=== PATIENT | male | born 1950 | race Caucasian/White ===

== ENCOUNTER 2018-04-29 10:08 | Inpatient (IN) | payer BC, MEDICARE ==
[~2018-04-29] VITALS: Ht 172.7 cm; Wt 118.2 kg
[~2018-04-29 10:08] MED LIST: AVALIDE 150-121 EACH; CO Q 10 PO; COSAMIN ASU CA1 EACH PO; CRESTOR10 MG PO; FIBER PO; FISH OIL; QSYMIA PO; TESTOSTERONE IM; VITAMIN D; VITAMIN D-3 PO; vitamin b12 PO
[2018-04-29] MEDS ORDERED: HYDROCODONE/APAP 10MG-325MG TAB ONE (10:36)
[2018-04-29] MEDS ORDERED: HYDROCODONE/APAP 10MG-325MG TAB PO ONE (10:45)
--- NOTE | 2018-04-29 11:50 | Diagnostic Imaging Report ---
Exam: Head CT without contrast History: Trauma, fall, on blood thinners Comparison studies: None Technique: Axial images were obtained from the skull base to the vertex. Coronal and sagittal images reconstructed from the axial data. Dose modulation, iterative reconstruction, and/or weight based adjustment of the mA/kV was utilized to reduce the radiation dose to as low as reasonably achievable. Radiation dose: Total DLP: 832 mGy*cm. Estimated effective dose: DLP x 0.015 Intravenous contrast: None Findings: Scalp: No abnormalities. Bones: No fractures, blastic or lytic lesions. Brain sulci: Appropriate for age. Ventricles: Normal in size and configuration. No hydrocephalus. Extra-axial spaces: No masses, no fluid collection. Parenchyma: No abnormal densities. No masses, hemorrhage, acute or chronic vascular insults. Sellar/suprasellar region: No abnormalities. Craniocervical junction: Patent foramen magnum. No Chiari one malformation. Incidental findings: Atherosclerotic calcifications in the carotid siphons and intradural vertebral arteries. IMPRESSION: No acute abnormalities. Specifically, no acute intracranial hemorrhage. Signed by: Dr. Antonio Heck M.D. on 04/29/2018 11:46 AM
--- NOTE | 2018-04-29 11:52 | Diagnostic Imaging Report ---
RIGHT FEMUR - 4 Images RIGHT KNEE - 3 Images RIGHT TIBIA AND FIBULA - 4 Images HISTORY: Pain, status post fall COMPARISON: None available. FINDINGS: Bones: A mildly comminuted, predominantly transverse, intra-articular fracture of the inferior half of the patella with 4.1 cm distraction of the main fracture fragments. No aggressive osseous lesion. Joints: Mild degenerative changes of the right hip. Soft tissues: Prominent soft tissue swelling about the patellar fracture. IMPRESSION: Acute, mildly comminuted, distracted fracture of the patella. Signed by: Dr. Clayton Jones D.O., M.M.M. on 04/29/2018 11:48 AM
[2018-04-29] MEDS ORDERED: SODIUM CHLORIDE 0.9% 1000ML 1,000 ML IV STA (12:56)
[2018-04-29] MEDS ORDERED: SODIUM CHLORIDE 0.9% 1000ML 1,000 ML IV SCH (13:17)
[2018-04-29] MEDS ORDERED: ONDANSETRON HCL INJ 2MG/ML 2ML 2 MG/ML VIAL IV PRN (13:30)
[2018-04-29] MEDS ORDERED: DEXTROSE 50% SYRINGE 50 ML IV PRN (13:30)
[2018-04-29] MEDS ORDERED: MORPHINE SULFATE 2 MG/ML SYR 1ML IV PRN (13:30)
[2018-04-29 13:35] LABS: BASOPHILS # (AUTO) 0.1 (0.0-0.1); BASOPHILS % 0.3 % (0.0-1.0); HEMATOCRIT 48.2 % (38.2-49.6); HEMOGLOBIN 16.5 g/dL (14.0-18.0); LYMPHOCYTES # (AUTO) 1.8 (1.0-3.2); LYMPHOCYTES % 8.7 % (18.0-39.1); MEAN CORPUSCULAR HEMOGLOBIN 29.1 pg (28-32); MEAN CORPUSCULAR HGB CONC 34.2 g/dL (31-35); MONOCYTES # (AUTO) 0.9 (0.2-0.8); MONOCYTES % 4.4 % (4.4-11.3); NEUTROPHILS # (AUTO) 17.9 (2.1-6.9); NEUTROPHILS % 85.9 % (38.7-80.0); PLATELET COUNT 256 x10e3/uL (140-360); RED BLOOD COUNT 5.67 x10e6/uL (4.3-5.7); RED CELL DISTRIBUTION WIDTH 13.2 % (11.7-14.4)
[2018-04-29 13:38] LABS: INR 0.92; PROTHROMBIN TIME 12.8 seconds (11.9-14.5)
[2018-04-29 13:39] LABS: PARTIAL THROMBOPLASTIN TIME 30.9 seconds (23.8-35.5)
--- NOTE | 2018-04-29 13:53 | Diagnostic Imaging Report ---
EXAM: CHEST SINGLE (PORTABLE) DATE: 04/29/2018 12:56 PM INDICATION: Preoperative knee surgery COMPARISON: None FINDINGS: Lines and tubes: None Heart size normal. No focal pulmonary opacity, pleural effusion or pneumothorax. Upper abdomen unremarkable. No acute bony abnormality. IMPRESSION: No evidence for acute disease. Signed by: Dr. Jet Scott M.D. on 04/29/2018 1:49 PM
--- NOTE | 2018-04-29 15:20 | NUR ---
RCD PT FROM ER BY STRETCHER PT IS ALERT AND ORIENTED VITALS CHECKED PT RESTING ON BED NO SIGNS OF ANY DISTRESS NOTED HE FELL DOWN WHILE IN THE BATH ROOM FRACTURE ON THE RT PATELLA ADMISSION ASSESSMENT AND HISTORY DONE FAMILY AT BED SIDE BED LOW AND LOCKED CALL LIGHT IN REACH
--- OUTSIDE RECORDS SUMMARY | 2018-04-29 15:20 | XMS REPORT ---
Author Author [facility] Address Unknown Phone Unavailable Care Team Providers Care Biomass Production Manager Name Role Phone Ignacio BELTRÁN Unavailable Unavailable Problems This patient has no known problems. Allergies, Adverse Reactions, Alerts This patient has no known allergies or adverse reactions. Medications This patient has no known medications. Results Test Description Test Time Test Comments Text Results Atomic Results Result Comments CHEST SINGLE (PORTABLE) 2018-04-29 13:48:00 [place] [address] Patient Name: MONTRELL VELAZCO MR #: [id number] : 1950 Age/Sex: 68/M Req #: [id number] Adm Physician: Ordered by: DAISY BELTRÁN MD Report #: [id number] Location: ER Room/Bed: Procedure: [id number] DX/CHEST SINGLE (PORTABLE) Exam Date: 04/29/18 Exam Time: 1300 REPORT STATUS: Signed EXAM: CHEST SINGLE (PORTABLE) DATE: 04/29/2018 12 :56 PM INDICATION: Preoperative knee surgery COMPARISON: None FINDINGS: Lines and tubes: None Heart size normal. No focal pulmonary opacity, pleural effusion or pneumothorax. Upper abdomen unremarkable. No acute bony abnormality. IMPRESSION: No evidence for acute disease. Signed by: Dr. Latasha Sousa M.D. on 04/29/2018 1:49 PM Dictated By: LATASHA SOUSA MD 1349 Transcribed By: CLAUDE on 04/29/181348 COPY TO: DAISY BELTRÁN MD FEMUR TWO VIEW MINIMUM RIGHT 2018-04-29 11:44:00 [place] [address] Patient Name: MONTRELL VELAZCO MR #: [id number] : 1950 Age/Sex: 68/M Req #: [id number] Adm Physician: Ordered by: KRISHAN SANTO NP Report #: [id number] Location: ER Room/Bed: Procedure: [id number] DX/FEMUR TWO VIEW MINIMUM RIGHT Exam Date: Exam Time: REPORT STATUS: Signed RIGHT FEMUR - 4 Images RIGHT KNEE - 3 Images RIGHT TIBIA AND FIBULA - 4 Images HISTORY: Pain, status post fall COMPARISON: None available. FINDINGS: Bones: A mildly comminuted, predominantly transverse, intra-articular fracture of the inferior half of the patella with 4.1 cm distraction of the main fracture fragments. No aggressive osseous lesion. Joints: Mild degenerative changes of the right hip. Soft tissues: Prominent soft tissue swelling about the patellar fracture. IMPRESSION: Acute, mildly comminuted, distracted fracture of the patella. Signed by: Dr. Alexa Jones D.O., M.M.M. on 04/29/2018 11:48 AM Dictated By: ALEXA JONES DO 1148 Transcribed By: CLAUDE on 04/29/18 1148 COPY TO: KRISHAN SANTO NP KNEE RIGHT THREE VIEWS 2018-04-29 11:44:00 [place] [address] Patient Name: MONTRELL VELAZCO MR #: [id number] : 1950 Age/Sex: 68/M Req #: [id number] Adm Physician: Ordered by: KRISHAN SANTO DIRECTOR INTELLIGENCE ANALYSIS PROGRAMS Report #: [id number] Location: ER Room/Bed: Procedure: [id number] DX/KNEE RIGHT THREE VIEWS Exam Date: 04/29/18 Exam Time: 1115 REPORT STATUS: Signed RIGHT FEMUR - 4 Images RIGHT KNEE - 3 Images RIGHT TIBIA AND FIBULA - 4 Images HISTORY: Pain, status post fall COMPARISON: None available. FINDINGS: Bones: A mildly comminuted, predominantly transverse, intra-articular fracture of the inferior half of the patella with 4.1 cm distraction of the main fracture fragments. No aggressive osseous lesion. Joints: Mild degenerative changes of the right hip. Soft tissues: Prominent soft tissue swelling about the patellar fracture. IMPRESSION: Acute, mildly comminuted, distracted fracture of the patella. Signed by: Dr. Alexa Jones D.O., M.M.M. on 04/29/2018 11:48 AM Dictated By: ALEXA JONES DO 1148 Transcribed By: CLAUDE on 04/29/18 1148 COPY TO: KRISHAN SANTO DIRECTOR INTELLIGENCE ANALYSIS PROGRAMS LOWER LEG RIGHT 2018-04-29 11:44:00 [place] [address] Patient Name: MONTRELL VELAZCO MR #: [id number] : 1950 Age/Sex: 68/M Req #: [id number] Adm Physician: Ordered by: KRISHAN SANTO DIRECTOR INTELLIGENCE ANALYSIS PROGRAMS Report #: [id number] Location: ER Room/Bed: Procedure: [id number] DX/LOWER LEG RIGHT Exam Date: 04/29/18 Exam Time: 1100 REPORT STATUS: Signed RIGHT FEMUR - 4 Images RIGHT KNEE - 3 Images RIGHT TIBIA AND FIBULA - 4 Images HISTORY: Pain, status post fall COMPARISON: None available. FINDINGS: Bones: A mildly comminuted, predominantly transverse, intra-articular fracture of the inferior half of the patella with 4.1 cm distraction of the main fracture fragments. No aggressive osseous lesion. Joints: Mild degenerative changes of the right hip. Soft tissues: Prominent soft tissue swelling about the patellar fracture. IMPRESSION: Acute, mildly comminuted, distracted fracture of the patella. Signed by: Dr. Alexa Jones D.O., M.M.M. on 04/29/2018 11:48 AM Dictated By: ALEXA JONES DO 1148 Transcribed By: CLAUDE on 04/29/18 1148 COPY TO: KRISHAN SANTO NP CT BRAIN WO 2018-04-29 11:41:00 [place] [address] Patient Name: MONTRELL VELAZCO MR #: [id number] : 1950 Age/Sex: 68/M Req #: [id number] Adm Physician: Ordered by: KRISHAN SANTO NP Report #: [id number] Location: ER Room/Bed: Procedure: [id number] CT/CT BRAIN WO Exam Date: 04/29/18 Exam Time: 1115 REPORT STATUS: Signed Exam: Head CT without contrast History: Trauma, fall, on b lood thinners Comparison studies: None Technique: Axial images were obtained from the skull base to the vertex. Coronal and sagittal images reconstructed from the axial data. Dose modulation, iterative reconstruction, and/or weight based adjustment of the mA/kV was utilized to reduce the radiation dose to as low as reasonably achievable. Radiation dose: Total DLP: 832 mGy*cm. Estimated effective dose: DLP x 0.015 Intravenous contrast: None Findings: Scalp: No abnormalities. Bones: No fractures, blastic or lytic lesions. Brain sulci: Appropriate for age. Ventricles: Normal in size and configuration. No hydrocephalus. Extra-axial spaces: No masses, no fluid collection. Parenchyma: No abnormal densities. No masses, hemorrhage, acute or chronic vascular insults. Sellar/suprasellar region: No abnormalities. Craniocervical junction: Patent foramen magnum. No Chiari one malformation. Incidental findings: Atherosclerotic calcifications in the carotid siphons and intradural vertebral arteries. IMPRESSION: No acute abnormalities. Specifically, no acute intracranial hemorrhage. Signed by: Dr. Raheel Heck M.D. on 04/29/2018 11:46 AM Dictated By: RAHEEL HECK MD 1146 Transcribed By: CLAUDE on 04/29/18 1146 COPY TO: KRISHAN SANTO NP
[2018-04-29 16:00] VITALS: BP 156/84
[2018-04-29] MEDS: INSULIN LISPRO 100 UNIT/1 ML 3ML VIAL SQ SCH ×2 (16:30→21:00)
[2018-04-29 16:32] VITALS: BP 156/84
--- NOTE | 2018-04-29 17:58 | NUR ---
CONSULTATION - ORTHOPEDICS Patient seen & examined resting comfortably at bedside with nearby. Patient states he had a mechanical fall which resulted in him eccentrically loading his right knee which resulted in a pop and fall. Denies any pain in any other extremity. Denies any numbness, paresthesias and loss of distal motor function. PMdHx: CAD, HTN, HLD, Borderline DM Allergies: NKDA SurgHx: Left Knee Surgery, Left Wrist Surgery, Cardiac Stents FamHx: Non-contributory SocHx: Denies Tob, Denies Drugs, 2 drinks per day EtOH Meds: See reconciliation VS: T 98.1, HR 75, RR 16, BP 144/94, O2 98 (RA) AAO x3, NAD, Pleasant male Right Knee Swollen, no open lesions or sores Palpable defect of patella Unable to extend knee Motor: + EHL, FHL, TA, G/S Sensation grossly intact Pulses + DP, Post tib Compartments soft Negative calf tenderness Xrays of Right Knee demonstrate comminuted left patella fracture 68 year old with Right patella fracture Plan for ORIF on Sunday Pending medical optimization and clearance Analgesics PRN Placed RLE in knee immobilizer and compressive dressing Rest, Ice & Elevation for swelling control Follow up AM Labs WBAT in knee immobilizer DVT Prophylaxis Lupe Lockett, DO [facility]
[2018-04-29 19:09] VITALS: BP 156/84
--- NOTE | 2018-04-29 19:31 | NUR ---
PATIENT RESTING ON BED BED SIDE REPORT GIVEN TO ONCOMING NURSE
--- NOTE | 2018-04-29 19:52 | NUR ---
CONSULT TO DR NUNEZ CALLED AT THIS TIME.
[2018-04-29 20:49] VITALS: BP 155/77
[2018-04-29 20:57] LABS: BASOPHILS % 0.2 % (0.0-1.0); EOSINOPHILS % 0.1 % (0.0-6.0); HEMATOCRIT 44.4 % (38.2-49.6); HEMOGLOBIN 15.3 g/dL (14.0-18.0); LYMPHOCYTES # (AUTO) 2.9 (1.0-3.2); LYMPHOCYTES % 17.4 % (18.0-39.1); MEAN CORPUSCULAR HEMOGLOBIN 28.8 pg (28-32); MEAN CORPUSCULAR HGB CONC 34.5 g/dL (31-35); MEAN CORPUSCULAR VOLUME 83.5 fL (81-99); MONOCYTES # (AUTO) 1.2 (0.2-0.8); MONOCYTES % 7.4 % (4.4-11.3); NEUTROPHILS # (AUTO) 12.3 (2.1-6.9); NEUTROPHILS % 74.4 % (38.7-80.0); PLATELET COUNT 240 x10e3/uL (140-360); RED BLOOD COUNT 5.32 x10e6/uL (4.3-5.7); RED CELL DISTRIBUTION WIDTH 13.2 % (11.7-14.4)
[2018-04-29 21:00] VITALS: BP 155/77
[2018-04-29] MEDS: HEPARIN SOD (PORCINE) 5,000 UNIT/ML VIAL SC SCH ×2 (21:00→21:57)
[2018-04-29 21:14] LABS: INR 0.94; PROTHROMBIN TIME 13.1 seconds (11.9-14.5)
[2018-04-29 21:15] LABS: PARTIAL THROMBOPLASTIN TIME 31.4 seconds (23.8-35.5)
[2018-04-29 21:25] LABS: ALANINE AMINOTRANSFERASE 23 IU/L (0-55); ALBUMIN 3.7 g/dL (3.5-5.0); ALBUMIN/GLOBULIN RATIO 1.2 (0.8-2.0); ALKALINE PHOSPHATASE 60 IU/L (40-150); ANION GAP 13.9 mmol/L (8-16); BLOOD UREA NITROGEN 15 mg/dL (7-26); BUN/CREATININE RATIO 14 (6-25); CARBON DIOXIDE 25 mmol/L (22-29); CHLORIDE 98 mmol/L (98-107); CREATINE KINASE 210 IU/L (30-200); EST GLOMERULAR FILTRATION RATE > 60 ML/MIN (60-); GLUCOSE 235 mg/dL (74-118); MAGNESIUM 1.8 MG/DL (1.3-2.1); POTASSIUM 3.9 mmol/L (3.5-5.1); SODIUM 133 mmol/L (136-145)
[2018-04-29 22:25] LABS: CLARITY,URINE CLEAR (CLEAR); COLOR,URINE YELLOW (YELLOW); LEUKOCYTE ESTERASE ,URINE NEGATIVE (NEGATIVE)
[2018-04-29 22:26] LABS: BILIRUBIN,URINE NEGATIVE (NEGATIVE); KETONES,URINE NEGATIVE (NEGATIVE); NITRITE,URINE NEGATIVE (NEGATIVE); PROTEIN,URINE DIPSTICK NEGATIVE (NEGATIVE); URINE UROBILINOGEN 0.2 mg/dL (0.2 - 1)
[2018-04-29 23:02] LABS: RBC,URINE 0-5 /HPF (0-5); WBC,URINE (MAN) 0-5 /HPF (0-5)
[2018-04-30] VITALS (8 sets, daily range): BP systolic 145–175; BP diastolic 73–97
[2018-04-30 05:50] LABS: BASOPHILS # (AUTO) 0.1 (0.0-0.1); BASOPHILS % 0.4 % (0.0-1.0); EOSINOPHILS # (AUTO) 0.1 (0.0-0.4); EOSINOPHILS % 0.6 % (0.0-6.0); HEMATOCRIT 44.4 % (38.2-49.6); HEMOGLOBIN 14.9 g/dL (14.0-18.0); LYMPHOCYTES # (AUTO) 4.2 (1.0-3.2); LYMPHOCYTES % 30.4 % (18.0-39.1); MEAN CORPUSCULAR HEMOGLOBIN 28.7 pg (28-32); MEAN CORPUSCULAR HGB CONC 33.6 g/dL (31-35); MEAN CORPUSCULAR VOLUME 85.4 fL (81-99); MONOCYTES # (AUTO) 1.4 (0.2-0.8); NEUTROPHILS # (AUTO) 8.1 (2.1-6.9); NEUTROPHILS % 58.2 % (38.7-80.0); PLATELET COUNT 232 x10e3/uL (140-360); RED CELL DISTRIBUTION WIDTH 13.4 % (11.7-14.4)
[2018-04-30 06:16] LABS: ALANINE AMINOTRANSFERASE 21 IU/L (0-55); ALBUMIN 3.5 g/dL (3.5-5.0); ALBUMIN/GLOBULIN RATIO 1.2 (0.8-2.0); ALKALINE PHOSPHATASE 53 IU/L (40-150); ANION GAP 11.3 mmol/L (8-16); BLOOD UREA NITROGEN 15 mg/dL (7-26); BUN/CREATININE RATIO 15 (6-25); CALCIUM 8.9 mg/dL (8.4-10.2); CARBON DIOXIDE 29 mmol/L (22-29); CHLORIDE 102 mmol/L (98-107); EST GLOMERULAR FILTRATION RATE > 60 ML/MIN (60-); GLUCOSE 195 mg/dL (74-118); POTASSIUM 4.3 mmol/L (3.5-5.1); SODIUM 138 mmol/L (136-145)
[2018-04-30] MEDS: HEPARIN SOD (PORCINE) 5,000 UNIT/ML VIAL SC SCH ×3 (06:30→21:27)
--- NOTE | 2018-04-30 06:30 | NUR ---
PT RESTING IN BED WITH NO S/S OF DISTRESS.RESPIRATIONS EVEN/NON LABORED.PT DENIES ANY PAIN AT THIS TIME.RLE ELEVATED.BED IN LOW/LOCKED POSITION.BED ALARM ON.CALL LIGHT WITHIN EASY REACH.
--- NOTE | 2018-04-30 07:10 | NUR ---
RCD PT AT BED PT IS ALERT AND ORIENTED ASSESSMENT DONE PT RESTING ON BED IV PATENT BRAZE ON THE RT KNEE NO C/O PAIN FAMILY AT BED SIDE BED LOW AND LOCKED CALL LIGHT IN REACH
--- NOTE | 2018-04-30 07:12 | NUR ---
REPORT GIVEN TO ONCOMING NURSE,WALKING ROUNDS MADE.PT RESTING IN BED WITH NO S/S OF DISTRESS.
[2018-04-30] MEDS: INSULIN LISPRO 100 UNIT/1 ML 3ML VIAL SQ SCH ×4 (07:30→21:26)
--- NOTE | 2018-04-30 08:20 | NUR ---
PT REFUSED INSULIN AND HE IS TAKING HIS OWN MEDS DR LUEVANO AWARE ABOUT IT
[2018-04-30] MEDS: HYDROCHLOROTHIAZIDE 25 MG TAB PO SCH (09:00)
[2018-04-30] MEDS ORDERED: SIMVASTATIN 40 MG TAB PO SCH (09:00)
[2018-04-30] MEDS: IRBESARTAN 150 MG TAB PO SCH (09:00)
--- NOTE | 2018-04-30 09:00 | NUR ---
ICE BAG APPLIED ON RT KNEE
--- NOTE | 2018-04-30 12:00 | NUR ---
CHANGED NEW ICE BAG ON THE RT KNEEICE BAG
--- NOTE | 2018-04-30 12:22 | NUR ---
CASE MANAGEMENT INITIAL ASSESSMENT Cherry Cutter to bedside to discuss plan of care with patient/family. CM/SW role and care transitions discussed. Anticipated discharge plan discussed along with duration of care. CM discussed patients right to make decisions in care. CM work hours given. Patient lives: PATIENT LIVES AT HOME IN [place], [place] WITH Admit/Transfer: ED Hospital/ER visits since last admit: >30 DAYS POA/Emergency contact: - SUZANNE VELAZCO- [phone] Current/Previous Home Health: NONE PCP/Follow-up Care: UNDEFINED. PATIENT PCP RETIRED. CURRENTLY SEARCHINF FOR A NEW PCP. PATIENT AWARE THAT A VISIT FOR FOLLOW UP IS HIGHLY ENCOURAGED WITHIN 5 DAYS OF DISCHARGE. PATIENT STATES HE WILL LOOK TODAY. Current/Previous DME: [facility] Medications (referring to index hospitalization or the first time you were in the hospital) a. Were changes made in your medications when you were in the hospital on [date of index hospitalization]? NO Note: If no or not sure, please skip to question d b. Did you understand the changes? Yes No Explain: c. Were you able to obtain your new medications right away? Yes Non/a SNF only Explain: d. Were you able to take your medications like the doctor wanted you to? Yes e. Did the hospital give you an accurate, easy to understand list of medications when you left? Yes Scale of 1-10 how comfortable does patient feel with disease management in outpatient setting: Other Services: NONE Employment Status: RETIRED; WORKS ALL DAY Areas of Concerns: NONE Referral Needs: POSSIBLE HOME HEALTH SN EVAL AND PT EVAL AND TREAT Education Needs: POST SURGICAL INSTRUCTIONS IMM/HECTOR given and signed (if applicable): NONE Goal for discharge: DISCHARGE HOME WITH HOME HEALTH FOR PT EVAL AND TREAT + SNF EVAL CM left business card at the bedside with contact information. Name and number was also written on the patients whiteboard. Patient verbalized understanding of discussion. CM will follow-up with ongoing discharge and transition of care needs.
[2018-04-30 12:49] LABS: CREATINE KINASE MB 1.6 ng/mL (0-5.0)
--- NOTE | 2018-04-30 16:16 | Consultation ---
DATE OF CONSULTATION: 04/30/2018 Cardiology Consultation Mr. Green is a pleasant 68-year-old diabetic, known to me for many years, who presented to the emergency room on the with a complaint of slipping, falling, and fracturing his right knee. HISTORY OF PRESENT ILLNESS: The patient reports he had been feeling fine and merely slipped and hit his knee on the tiles. He denies any fevers, chills, or dysuria. He has had no chest pain or palpitations. PAST MEDICAL HISTORY: Significant for stenting of the LAD on August 22, 2013. He has had remote colonoscopy with polypectomy also in 2013, tonsillectomy in 1972, and previous knee surgery in 2000. HOME MEDICATIONS: His recent home medicines have been aspirin 81 mg daily, Plavix 75 mg daily, metoprolol succinate ER 50 mg daily, rosuvastatin 20 mg daily, irbesartan/hydrochlorothiazide 300/12.5 daily, vitamin D, fish oil, and B12. FAMILY HISTORY: Father diet at 85 of Alzheimer's disease. Mother at 61 with congestive heart failure after bypass graft surgery. PHYSICAL EXAMINATION: GENERAL: At this time, show a pleasant obese man, who is alert, comfortable, wearing a right knee brace. VITAL SIGNS: Blood pressure 157/89. He is afebrile. HEAD, EYES, EARS, NOSE, AND THROAT: Unremarkable. NECK: No jugular venous distention. THORAX: Heart sounds S1 and S2 are equal. No murmur. LUNGS: Clear. ABDOMEN: Protuberant. EXTREMITIES: Again show the right knee brace. LABS AND RADIOGRAPHIC DATA: EKG is unremarkable. Cardiac enzymes are normal. His initial white cell count was 20,800, repeat today is 13.8. Urinalysis is unremarkable. Potassium 4.3, BUN of 15, and creatinine 1.0. Again, the patient had a normal stress test on July 17, 2017, in my office. ASSESSMENT: 1. Patellar fracture. 2. Coronary artery disease, clinically stable without symptoms and previous normal stress test. 3. Type 2 adult-onset diabetes. 4. Leukocytosis, etiology not clear. PLAN: The patient's cardiac status is stable for surgery. Aspirin and Plavix are both on hold. Further management based on clinical course. MD YVONNE Smyth/GEMMA /[id number] cc: Ricco Drew
--- NOTE | 2018-04-30 16:42 | NUR ---
PROGRESS NOTES - ORTHOPEDICS Patient seen & examined resting comfortably at bedside. Has been able to ambulate with knee immobilizer. No numbness, paresthesias or loss of distal motor function. VS T 97.8 HR 77 RR 22 Bp 175/95 O2 95% (RA) Right knee in knee immobilizer Clean, dry and intact Motor: + EHL, FHL, TA, G/S Sensation grossly intact Pulses + DP, Post tib Compartments soft Negative calf tenderness 68 year old M with right patellar fracture Plan for OR tomorrow Rest, Ice & Elevation Analgesics PRN DVT Prophylaxis NPO excepts meds after midnight IVF while NPO Hold anticoagulation after midnight Lupe Lockett, DO [facility]
[2018-04-30] MEDS ORDERED: CLOPIDOGREL75 MG PO (17:25)
[2018-04-30] MEDS ORDERED: METOPROLOL SUCC50 MG PO (17:25)
[2018-04-30 17:51] LABS: CREATINE KINASE MB 1.9 ng/mL (0-5.0)
--- NOTE | 2018-04-30 18:44 | NUR ---
PATIENT RESTING ON BED BED SIDE REPORT GIVEN TO ONCOMING NURSE
--- NOTE | 2018-04-30 20:00 | NUR ---
PT RESTING IN BED WITH NO S/S OF DISTRESS.RESPIRATIONS EVEN/NON LABORED.PT DENIES ANY PAIN/DISCOMFORT AT THIS TIME.RLE ELEVATED AND ICE PACK APPLIED.IMMOBILIZER IN PLACE.BED ALARM ACTIVATED.BED IN LOW/LOCKED POSITION.CALL LIGHT WITHIN EASY REACH.
[2018-04-30] MEDS: METOPROLOL SUCCINATE 50 MG TAB XL PO SCH (21:25)
[2018-04-30] MEDS: CRESTOR 10MG PO SCH (21:25)
[2018-04-30] MEDS ORDERED: SODIUM CHLORIDE 0.9% 1000ML 1,000 ML IV SCH (22:00)
[2018-05-01] MEDS: SODIUM CHLORIDE 0.9% 1000ML 1,000 ML IV SCH ×3 (00:20→21:26)
[2018-05-01 01:09] VITALS: BP 154/88
[2018-05-01 06:32] VITALS: BP 159/80
--- NOTE | 2018-05-01 07:20 | NUR ---
REPORT GIVEN TO ONCOMING NURSE,WALKING ROUNDS MADE.PT RESTING IN BED WITH NO S/S OF DISTRESS.
[2018-05-01 08:05] VITALS: BP 167/91
[2018-05-01] MEDS: INSULIN LISPRO 100 UNIT/1 ML 3ML VIAL SQ SCH ×4 (08:17→21:28)
[2018-05-01] MEDS ORDERED: METOPROLOL SUCCINATE 50 MG TAB XL PO SCH (09:00)
[2018-05-01] MEDS: IRBESARTAN 150 MG TAB PO SCH (10:13)
[2018-05-01] MEDS: HYDROCHLOROTHIAZIDE 25 MG TAB PO SCH (10:13)
[2018-05-01 12:25] VITALS: BP 172/80
--- NOTE | 2018-05-01 13:48 | NUR ---
Patient to OR at this time. Patient is A&Ox3.
[2018-05-01] MEDS ORDERED: BUPIVACAINE HCL 0.5% INJ 30 ML VIAL INJ ONE (14:04)
[2018-05-01] MEDS ORDERED: BUPIVACAINE 0.25%/EPI 30ML SDV INJ ONE (14:04)
[2018-05-01] MEDS ORDERED: KETOROLAC TROMETHAMINE 30 MG/ML VIAL ONE (14:23)
[2018-05-01] MEDS ORDERED: ONDANSETRON HCL INJ 2MG/ML 2ML 2 MG/ML VIAL ONE (14:23)
[2018-05-01] MEDS ORDERED: SEVOFLURANE INHAL SOLN 250 ML PEN BTL ONE (14:23)
[2018-05-01] MEDS ORDERED: LIDOCAINE HCL 2% LOCAL INJ 5 ML SDV VIAL INJ ONE (14:23)
[2018-05-01] MEDS ORDERED: PROPOFOL IV EMULSION 10 MG/ML 20 ML VIAL ONE (14:23)
[2018-05-01] MEDS ORDERED: PHENYLEPHRINE HCL 1% 10 MG/ML VIAL ONE (14:23)
[2018-05-01] MEDS ORDERED: DEXAMETHASONE SOD PHOS INJ 4 MG/ML VIAL ONE (14:23)
[2018-05-01] MEDS ORDERED: FENTANYL CITRATE/PF 100MCG/2 ML INJ ONE ×2 (16:46→17:58)
[2018-05-01] MEDS ORDERED: ROPIVACAINE 0.5% 5 MG/ML 30 ML SDV ONE (17:49)
[2018-05-01] MEDS ORDERED: EPINEPHRINE HCL 1:1000 1ML 1 MG/ML AMP ONE (17:49)
--- NOTE | 2018-05-01 19:39 | NUR ---
OPERATIVE NOTE - ORTHOPEDICS DATE OF OPERATION: 05/01/2018 PREOPERATIVE DIAGNOSIS: Comminuted right patella fracture. POSTOPERATIVE DIAGNOSIS: Comminuted right patella fracture. OPERATION PERFORMED: Open reduction internal fixation, right patella fracture. Flouroscopic Interpretation SURGEON: Lupe Lockett DO ANESTHESIA: General. TOURNIQUET: 120 Min EBL: 100 cc DESCRIPTION OF OPERATION: After the induction of anesthesia, time-out was carried out to verify patient, procedure to be done, and site to be operated on. The patient was cleared medically prior to surgery. The patient had a tourniquet applied to the proximal portion of the right lower extremity. All bony prominences were well padded. The extremity was scrubbed, prepped, and draped in a sterile manner. The patient was given Ancef IV before the tourniquet was elevated, after which wrapped with an Esmarch at 250 mmHg. A longitudinal prepatellar incision was made. A significant amount of hematoma was evacuated, and irrigation was used to clean out the remainder of the hematoma. After that was performed, it was noted that the patella was comminuted , there was still a small fragment distally, and approximately 80% proximally which had a fracture line through it laterally and a distal pole that was extremely comminuted with a coronal fracture line. Cannulated screws were used to bring the distal fragment together and the proximal fragment. Initial reduction and tension band fixation was attempted resulted in loss of reduction of the joint surface. Next, the bone reduction clamp was used to reduce the proximal patellar fracture, and using cannulated 3 partially long threaded screws with good purchase on the patella and good reduction to a near anatomic position. Due to the inability maintain reduction with tension band technique, a 18 g sternal while was circumfrentially wrapped around the patella in order to augment the repair. Next, the retinacular sutures were sutured both medially and laterally with 0 vicryl. After thorough irrigation, 0 Vicryl was used to close the remainder of the retinaculum from top to bottom, 2-0 undyed Vicryl subcutaneously, and the 3-0 Monocryl for the skin. An aquacel dressing, and a compressive dressing was applied and the leg was placed in a knee brace locked in extension. The tourniquet time was 120 minutes. The patient was brought from the operating room in stable condition.
--- NOTE | 2018-05-01 19:42 | NUR ---
PROGRESS NOTES: Patient seen & examined in recovery. Pain well controlled AVSS Right Lower Extremity Motor: + EHL, FHL, TA, G/S Sensation grossly intact Pulses + DP, Post tib Compartments soft Negative calf tenderness 68 year old M s/p Patella ORIF Analgesics PRN DVT Prophylaxis - Plan to either resume at home anticoagulation with Plavix and Aspirin or start Aspirin 325 mg PO BID at home PT - WBAT in knee immobilizer locked in extension, May do PROM to 30 deg Orthopedically stable for discharge Follow up in office in 2 weeks Rest, Ice & Elevation Thank you for the consultation. DO M[facility]
[2018-05-01 20:00] VITALS: BP 185/85
--- NOTE | 2018-05-01 21:10 | NUR ---
patient is back from recovery. patient is aaox3, right leg dressing noted, locked brace noted. patient denies of any pain at this time. family at bed side. continue to monitor closely
[2018-05-01] MEDS: CRESTOR 10MG PO SCH (21:26)
[2018-05-01] MEDS: METOPROLOL SUCCINATE 50 MG TAB XL PO SCH (21:27)
[2018-05-02] VITALS (7 sets, daily range): BP systolic 134–186; BP diastolic 63–84
[2018-05-02] MEDS: SODIUM CHLORIDE 0.9% 1000ML 1,000 ML IV SCH ×2 (05:05→16:00)
[2018-05-02] MEDS ORDERED: HEPARIN SOD (PORCINE) 5,000 UNIT/ML VIAL SC ONE (06:30)
[2018-05-02] MEDS: MORPHINE SULFATE INJ 4 MG/ML INJ 1ML IV PRN ×2 (07:40→17:17)
--- NOTE | 2018-05-02 07:40 | NUR ---
The pt. is awake,alert and oriented times 4 and has immobilizer intact the the left knee s/p o r i f partial patella. The toes are cold but pulse is present in the foot. The pt comp pain 7/10 and was medicated with 4 mg morphine. He was advised to remain in bed post medication for 30 minutes.
[2018-05-02] MEDS: INSULIN LISPRO 100 UNIT/1 ML 3ML VIAL SQ SCH ×4 (07:45→20:40)
[2018-05-02] MEDS: HYDROCHLOROTHIAZIDE 25 MG TAB PO SCH (07:48)
[2018-05-02] MEDS: IRBESARTAN 150 MG TAB PO SCH (07:48)
--- NOTE | 2018-05-02 11:05 | NUR ---
I spoke with PT and they are unable to givea time for therapy only that he will be seen today.
[2018-05-02] MEDS: CRESTOR 10MG PO SCH (20:39)
[2018-05-02] MEDS: METOPROLOL SUCCINATE 50 MG TAB XL PO SCH (20:40)
[2018-05-03] VITALS: BP 179/83
[2018-05-03] MEDS: SODIUM CHLORIDE 0.9% 1000ML 1,000 ML IV SCH ×2 (00:46→12:00)
[2018-05-03 04:13] VITALS: BP 155/73
[2018-05-03 08:04] VITALS: BP 159/68
[2018-05-03 08:29] VITALS: BP 159/68
[2018-05-03 08:57] LABS: BASOPHILS # (AUTO) 0.1 (0.0-0.1); BASOPHILS % 0.3 % (0.0-1.0); EOSINOPHILS % 0.1 % (0.0-6.0); HEMATOCRIT 39.6 % (38.2-49.6); HEMOGLOBIN 13.1 g/dL (14.0-18.0); LYMPHOCYTES # (AUTO) 2.7 (1.0-3.2); LYMPHOCYTES % 15.7 % (18.0-39.1); MEAN CORPUSCULAR HEMOGLOBIN 28.7 pg (28-32); MEAN CORPUSCULAR HGB CONC 33.1 g/dL (31-35); MEAN CORPUSCULAR VOLUME 86.7 fL (81-99); MONOCYTES # (AUTO) 2.1 (0.2-0.8); MONOCYTES % 11.9 % (4.4-11.3); NEUTROPHILS # (AUTO) 12.3 (2.1-6.9); NEUTROPHILS % 71.1 % (38.7-80.0); PLATELET COUNT 241 x10e3/uL (140-360); RED BLOOD COUNT 4.57 x10e6/uL (4.3-5.7); RED CELL DISTRIBUTION WIDTH 13.2 % (11.7-14.4)
[2018-05-03 09:17] LABS: ANION GAP 12.2 mmol/L (8-16); BLOOD UREA NITROGEN 13 mg/dL (7-26); BUN/CREATININE RATIO 13 (6-25); CALCIUM 8.8 mg/dL (8.4-10.2); CARBON DIOXIDE 30 mmol/L (22-29); CHLORIDE 97 mmol/L (98-107); CREATININE, SERUM 1.01 mg/dL (0.72-1.25); EST GLOMERULAR FILTRATION RATE > 60 ML/MIN (60-); GLUCOSE 241 mg/dL (74-118); POTASSIUM 4.2 mmol/L (3.5-5.1); SODIUM 135 mmol/L (136-145)
[2018-05-03] MEDS: IRBESARTAN 150 MG TAB PO SCH (09:37)
[2018-05-03] MEDS: HYDROCHLOROTHIAZIDE 25 MG TAB PO SCH (09:37)
[2018-05-03] MEDS: INSULIN LISPRO 100 UNIT/1 ML 3ML VIAL SQ SCH ×2 (09:42→11:30)
[2018-05-03 12:06] VITALS: BP 149/73
[2018-05-03] MEDS: MORPHINE SULFATE INJ 4 MG/ML INJ 1ML IV PRN (12:09)
[2018-05-03] MEDS ORDERED: ASPIRIN325 MG PO (12:15)
[2018-05-03] MEDS ORDERED: TRADJENTA5 MG PO (12:15)
--- NOTE | 2018-05-03 14:31 | NUR ---
PROVIDED WALKER FOR PT GOT SIGNED BY MD SHEA AND FILED IN PACU
== END 2018-05-03 13:25 | disposition home or self-care (01) | DRG 517 ==
LOC: ER 10:08 → ERHOLD 15:15 → MED/SURG2 15:27
PROC: 0QSD04Z Reposition Right Patella with Internal Fixation Device, Open Approach (ICD-10-PCS; principal; 2018-05-01 14:44)
DX: S82.041A Displaced comminuted fracture of right patella, initial encounter for closed fracture (principal); S60.811A Abrasion of right wrist, initial encounter; S60.511A Abrasion of right hand, initial encounter; S80.211A Abrasion, right knee, initial encounter; S90.811A Abrasion, right foot, initial encounter; S09.90XA Unspecified injury of head, initial encounter; W01.198A Fall on same level from slipping, tripping and stumbling with subsequent striking against other object, initial encounter; Y93.01 Activity, walking, marching and hiking; Y92.012 Bathroom of single-family (private) house as the place of occurrence of the external cause; I10 Essential (primary) hypertension; E11.9 Type 2 diabetes mellitus without complications; I25.10 Atherosclerotic heart disease of native coronary artery without angina pectoris; I25.2 Old myocardial infarction; E78.5 Hyperlipidemia, unspecified; Z95.5 Presence of coronary angioplasty implant and graft; Z83.3 Family history of diabetes mellitus; Z82.49 Family history of ischemic heart disease and other diseases of the circulatory system; G47.33 Obstructive sleep apnea (adult) (pediatric); Z79.82 Long term (current) use of aspirin; D72.829 Elevated white blood cell count, unspecified
CPT/HCPCS: 36415; 70450; 71045; 80048; 80053; 81001; 82550; 82553; 82948; 83036; 83735; 84484; 85025; 85610; 85730; 86850; 86900; 93005; 99284; J0171; J1100; J1644; J1885; J2001; J2270; J2370; J2405; J2795; J7030

== ENCOUNTER 2018-05-24 09:00 | Outpatient (RCR) | payer BC, MEDICARE ==
[~2018-05-24 09:00] MED LIST changes: +ASPIRIN325 MG PO; +CLOPIDOGREL75 MG PO; +METOPROLOL SUCC50 MG PO; +TRADJENTA5 MG PO
== END 2018-05-26 ==
LOC: PT 09:00
PROVIDERS: ATTEND Orthopaedic Surgery
DX: S82.001A Unspecified fracture of right patella, initial encounter for closed fracture (principal); Z74.09 Other reduced mobility; M62.81 Muscle weakness (generalized); M25.561 Pain in right knee; M25.661 Stiffness of right knee, not elsewhere classified

== ENCOUNTER 2018-06-24 15:57 | Outpatient (RCR) | payer BC, MEDICARE | END 2018-06-25 | LOC: PT 15:57 | PROVIDERS: ATTEND Orthopaedic Surgery | DX: S82.001A Unspecified fracture of right patella, initial encounter for closed fracture (principal); M25.561 Pain in right knee; M25.661 Stiffness of right knee, not elsewhere classified; M62.81 Muscle weakness (generalized) | CPT/HCPCS: 97139 ==

== ENCOUNTER 2018-07-17 15:00 | Outpatient (RCR) | payer BC, MEDICARE | END 2018-07-26 | LOC: PT 15:00 | PROVIDERS: ATTEND Orthopaedic Surgery | DX: S82.001A Unspecified fracture of right patella, initial encounter for closed fracture (principal); M62.81 Muscle weakness (generalized); M25.561 Pain in right knee; M25.661 Stiffness of right knee, not elsewhere classified ==

== ENCOUNTER 2018-08-23 07:49 | Outpatient (RCR) | payer BC | END 2018-08-25 | LOC: PT 07:49 | PROVIDERS: ATTEND Orthopaedic Surgery | DX: S82.001A Unspecified fracture of right patella, initial encounter for closed fracture (principal); M25.561 Pain in right knee; M25.661 Stiffness of right knee, not elsewhere classified; M62.81 Muscle weakness (generalized) ==

== ENCOUNTER 2018-09-13 07:52 | Outpatient (RCR) | payer BC | END 2018-09-25 | LOC: PT 07:52 | PROVIDERS: ATTEND Orthopaedic Surgery | DX: S82.001A Unspecified fracture of right patella, initial encounter for closed fracture (principal); M62.81 Muscle weakness (generalized); M25.561 Pain in right knee; M25.661 Stiffness of right knee, not elsewhere classified | CPT/HCPCS: 97139 ==

== ENCOUNTER → 2022-08-09 | Outpatient (CLI) | payer MEDICARE | LOC: RAD 10:22 | PROVIDERS: ATTEND Internal Medicine | DX: M54.50 Low back pain, unspecified (principal); M25.552 Pain in left hip | CPT/HCPCS: 72100 ==

== ENCOUNTER → 2024-01-11 | Day surgery (SDC) | payer MEDICARE ==
[~2024-01-11] MED LIST changes: +ACETAMINOPHEN 1000 MG/100 ML 100 ML IV ONE; +ASPIRIN81 MG PO; +AVALIDE 300-121 EACH PO; +BERBERINE500 MG PO; +BUPIVACAINE HCL 0.5% INJ 30 ML VIAL INJ ONE; +COQ-10100 MG PO; +CORTIZONE-1028 G1 TOP; +EPHEDRINE SULFATE INJ 50 MG/ML VIAL ONE; +FENTANYL CITRATE/PF 100MCG/2 ML INJ ONE; +FLOMAX0.4 MG PO; +JARDIANCE10 MG PO; +LACTATED RINGER'S 1,000 ML ONE; +LIDOCAINE 1% W/EPINEPHRINE 20 ML VIAL ONE; +LIDOCAINE HCL 2% LOCAL INJ 5 ML SDV VIAL INJ ONE; +METRONIDAZOLE 1% TOP; +NAPROXEN250 MG PO; +OCUVITE TABLET1 EAC1 PO; +ONDANSETRON HCL INJ 2MG/ML 2ML 2 MG/ML VIAL ONE; +OZEMPIC0.25 MG/02 SQ; +PROPOFOL IV EMULSION 10 MG/ML 20 ML VIAL ONE; +REFRESH GEL OU; +REPATHA SU140 MG/1 M SQ; +VITAMIN B122500 MCG PO; +VITAMIN D3125 MCG PO; +Vancomycin IV 1 GM VIAL ONE; +ZINC50 M2 PO
[2024-01-11] MEDS: LACTATED RINGER'S 1,000 ML BAG INJ ONE (06:35)
[2024-01-11 07:35] VITALS: TEMP 97
[2024-01-11 08:20] VITALS: BP 146/84; PULSE 55; RESP 16; O2SAT 97
== END | disposition home or self-care (01) ==
LOC: OR 05:27
PROVIDERS: ATTEND Orthopaedic Surgery
DX: D18.09 Hemangioma of other sites (principal); G47.33 Obstructive sleep apnea (adult) (pediatric); I25.10 Atherosclerotic heart disease of native coronary artery without angina pectoris; I10 Essential (primary) hypertension; E78.5 Hyperlipidemia, unspecified; E11.9 Type 2 diabetes mellitus without complications; Z01.818 Encounter for other preprocedural examination; Z79.02 Long term (current) use of antithrombotics/antiplatelets; Z79.82 Long term (current) use of aspirin; Z79.84 Long term (current) use of oral hypoglycemic drugs; Z79.85 Long-term (current) use of injectable non-insulin antidiabetic drugs; Z79.899 Other long term (current) drug therapy; Z95.5 Presence of coronary angioplasty implant and graft
CPT/HCPCS: 27327; 36415; 71046; 82948; 88307; 88342; J0131; J0690; J2003; J2405; J2704; J3010; J3370; J7121; 88304